=== PATIENT | female | born 1960 | race Caucasian/White ===

== ENCOUNTER → 2016-10-23 | Outpatient (CLI) | payer OTHER ==
--- NOTE | 2016-10-23 11:09 | US ---
Pelvic Ultrasound (Transabdominal and Endovaginal) with color flow and spectral Doppler History: 3 cm mass seen on prior outside CT study from August, not available for review but by outside history corresponded to the right ovary. History of vaginal spotting last few weeks. Previou s ablation procedure. IUD in place. (Q 50.39). Comparison: Prior CT study available from June 07, 2016 Findings: The pelvis was first examined through a mildly distended bladder from TRANSABDOMINAL approach. UTERUS: Partially obscured by overlying bowel loops. Orientation: Anteflexed. Uterine Masses: None seen. Endometrium: Not well delineated. ADNEXA: No adnexal masses. The ovaries are not positively identified from transabdominal approach. The pelvis was then evaluated from ENDOVAGINAL approach after the bladder was emptied to better evalu ate the uterus and adnexa. UTERUS: 10.2 x 5.1 x 7.8 cm in longitudinal, AP, and transverse dimensions. Orientation: Anteverted. Masses: There is a subserosal fibroid suspected along the right side of the uterine body to fundus me asuring 2.3 x 2.1 x 2.6 cm.. Endometrium: Normal measuring 7 to 8 mm in thickness. IUD appears to be low in position within the e ndometrial canal. On the prior CT available, the IUD was previously malpositioned being transverse or ientation within the endometrial canal that is not persistent on today's study. ADNEXA: Normal. There is a 17 x 9 mm follicular cyst associated with the right ovary. No mass is seen associated with either ovary. Right ovary size: 2.4 x 1.2 x 2.6 cm Left ovary size: 2.1 x 1.1 x 2.3 cm Color flow and spectral Doppler: Normal color flow imaging with normal Doppler waveform bilaterally. Free fluid: None. Other findings:None. Impression: 1. Small subserosal fibroid along the right-side of the uterine body to fundus. 2. Benign-appearing follicular cyst identified associated with right ovary. No adnexal mass is seen. 3. IUD in place within the endometrial canal that is slightly low in position but otherwise normal.
== END ==
LOC: CIMAGING 09:22
PROVIDERS: ATTEND Internal Medicine
DX: D25.2 Subserosal leiomyoma of uterus (principal); N83.01 Follicular cyst of right ovary; Z97.5 Presence of (intrauterine) contraceptive device
CPT/HCPCS: 76856-PO

== ENCOUNTER → 2017-01-26 | Outpatient (CLI) | payer OTHER | LOC: CIMAGING 14:58 | DX: Z12.31 Encounter for screening mammogram for malignant neoplasm of breast (principal) | CPT/HCPCS: G0202 ==

== ENCOUNTER 2017-02-02 09:36 | Emergency (ER) | payer OTHER ==
[2017-02-02 10:36] VITALS: BP 110/65; PULSE 57; RESP 16; TEMP 98.2; O2SAT 95
--- NOTE | 2017-02-02 10:42 | UCPHY ---
H & P Time Seen by Provider: 02/02/17 10:24 Patient Type: New HPI/ROS: CHIEF COMPLAINT: Left leg swelling HISTORY OF PRESENT ILLNESS: Patient had a DVT in 2012 and had a stroke in March of 2015 leaving her with some left-sided deficits. 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 Over the past week she has had some intermittent numbness and weakness in her usual pattern but also some swelling in the left leg. Concern is for recurrent DVT. She is on Xarelto. REVIEW OF SYSTEMS: No fever or chills or new injury or chest pain or shortness of breath. She does have ongoing aches including some chronic back pain but nothing new in that pattern. PAST MEDICAL HISTORY: Includes DVT on Xarelto 20 mg daily, stroke with left- sided weakness in 2014 Social history: General Appearance: Alert and conversant, cooperative. Left leg has some medial slight redness without warmth to the touch or lymphangitis which the patient says is also common for her. She has some muscle wasting in the left leg but compartments are soft. No peripheral edema noted. She has 4 to 4+ dorsiflexion and plantar flexion of the left foot compared to the right. No clonus and normal patellar reflexes bilaterally. No bony tenderness. Speaks in full sentences without respiratory distress. Emergency Department course/MDM: Patient's numbness and weakness are within normal pattern and I do not think she his at high likelihood of having acute disc rupture or epidural hematoma. Patient states that she also thinks that these are unlikely. Plan for ultrasound to evaluate for DVT. 1136: Discussed results with the patient. Per Dr. Pike she has new distal femoral and popliteal DVT. Missed a dose of Xarelto a week ago. 1143: Discussed with Love at this time, recommends lovenox 1mg/kg subcutaneously, discontinue Xarelto, if possible arrange for CT abdomen pelvis to evaluate for anatomic compression or May-Thurner syndrome. I discussed Dr. Aleman's recommendations with the patient. She sees Dr. Antoine. The patient tells me she had CT chest abdomen and pelvis with IV contrast through her [facility] neurologist in October or November of this year , and because of that we will defer CT imaging today and she will follow up with her usual composing room machinist Dr. Antoine in the office later this week. She does not have clinical signs or symptoms to suggest concurrent PE. Smoking Status: Never smoked Constitutional: Initial Vital Signs Temperature (C) 36.8 C 02/02/17 10:03 Heart Rate 57 L 02/02/17 10:03 Respiratory Rate 16 02/02/17 10:03 Blood Pressure 110/65 02/02/17 10:03 O2 Sat (%) 95 02/02/17 10:03 O2 Delivery Mode Room Air Allergies/Adverse Reactions: coconut oil Allergy (Verified 02/02/17 10:12) tropical fruits Allergy (Mild, Uncoded 02/02/17 10:12) Congestion liquid potassium Allergy (Uncoded 02/02/17 10:12) Home Medications: Medication Instructions Recorded Multivitamins W-Minerals [Thera M 1 each PO DAILY #0 tab 05/18/15 Plus Tablet (*)] Amantadine HCl [Symmetrel] 100 mg PO DAILY 06/07/16 Calcium Polycarbophil [Fiber-Caps] 625 mg PO DAILY 06/07/16 Herbals/Supplements -Info Only 1 ea PO DAILY 06/07/16 Metoprolol Tartrate [Lopressor 25 12.5 mg PO BID 06/07/16 mg (*)] [place]-3 Fatty Acids [Fish Oil 1000 1,000 mg PO DAILY 06/07/16 mg (*)] Sennosides/Docusate Sodium 1 tab PO BID 06/07/16 [Senokot-S] Sertraline HCl [Zoloft 100mg (*)] 150 mg PO DAILY 06/07/16 Tamsulosin HCl [Flomax 0.4 MG (*)] 0.4 mg PO DAILY 06/07/16 Omeprazole Magnesium [Prilosec Otc] 20 mg PO DAILY06 06/08/16 Diltiazem Cd [Cardizem ER 120 MG 120 mg PO DAILY@18 08/05/16 (*)] Rivaroxaban [Xarelto 15mg (*)] 15 mg PO DAILY 08/05/16 Zolpidem Tartrate [Ambien 5MG (*)] 5 - 10 mg PO HS 08/05/16 Atorvastatin Calcium [Lipitor 10 20 mg PO DAILY@18 #0 tab 08/06/16 mg (*)] Baclofen 04/17/17 Enoxaparin [Lovenox 80 MG (*)] 80 mg SQ BID #14 syr 02/02/17 LEVETIRACETAM 02/02/17 Xarelto 02/02/17 MDM/Departure - MDM Diagnostics: Imaging Impressions Extremity Venous Study 02/02/17 10:38 Impression: Acute on chronic deep venous thrombosis limited to the popliteal vein. Findings discussed with Emergency Department physician, Dr. Ernesto Perdomo, on February 02, 2017 at 1140 hours. Imaging Results: Imaging Impressions Extremity Venous Study 02/02/17 10:38 Impression: Acute on chronic deep venous thrombosis limited to the popliteal vein. Findings discussed with Emergency Department physician, Dr. Ernesto Perdomo, on February 02, 2017 at 1140 hours. Imaging: Discussed imaging studies w/ call out operator Radiologist Medications Given: Discontinued Medications Enoxaparin Sodium (Lovenox) 80 mg SC EDNOW ONE Stop: 02/02/17 11:54 Last Admin: 02/02/17 12:37 Dose: 80 mg - Depart Disposition: Home, Routine, Self-Care Clinical Impression: DVT (deep venous thrombosis) Qualifiers: DVT location: lower extremity Affected thrombotic vein of extremity: unspecified vein of extremity Laterality: left Chronicity: acute Qualified Code( s): I82.402 - Acute embolism and thrombosis of unspecified deep veins of left lower extremity Condition: Good Instructions: Deep Venous Thrombosis (ED) Additional Instructions: Stop Xarelto. Start Lovenox. Follow-up with your composing room machinist this week in the office. Return for chest pain or shortness of breath or worsening leg pain or swelling. Prescriptions: Enoxaparin [Lovenox 80 MG (*)] 80 mg SQ BID #14 syr Referrals: Anu Mcduffie MD [Primary Care Provider] - As per Instructions Kvng Antoine MD [Medical Doctor] - As per Instructions - PQRS PQRS Measurement: na
[2017-02-02] MEDS ORDERED: ENOXAPARIN 80 MG/0.8 ML SYR SC ONE (11:53)
== END 2017-02-02 12:45 | disposition home or self-care (01) ==
LOC: CED 09:36
DX: I82.402 Acute embolism and thrombosis of unspecified deep veins of left lower extremity (principal); I69.364 Other paralytic syndrome following cerebral infarction affecting left non-dominant side; Z79.01 Long term (current) use of anticoagulants
CPT/HCPCS: 93971-PO; 96372-PO; 99203-PO; G0463-PO; J1650

== ENCOUNTER 2017-03-22 16:58 | Emergency (ER) | payer OTHER ==
[2017-03-22 17:03] VITALS: RESP 16; O2SAT 95
--- NOTE | 2017-03-22 17:30 | EDPHY ---
H & P Time Seen by Provider: 03/22/17 17:11 HPI/ROS: CHIEF COMPLAINT: Hematuria, fatigue HISTORY OF PRESENT ILLNESS: 56-year-old female presents to the emergency department with intermittent hematuria over last 2 weeks. Patient was diagnosed with urinary tract infection 2 weeks ago was started on Bactrim. She took this twice daily for 1 week. Her symptoms returned. She saw Dr. Saba, her urologist, and was restarted on Bactrim just 2 or 3 days ago. She has been taking this as prescribed twice daily. She states over last few days she has felt extremely fatigued lack of energy. She has no pain in her chest. No difficulty breathing. No abdominal pain or back pain. No reported trauma. No fevers or chills. She has had intermittent headaches although she does not have a headache now. The patient has a history of a previous CVA and is on Eliquis. She was on Xarelto and this was changed because she developed DVT in her leg. REVIEW OF SYSTEMS: Constitutional: No fever, no chills. Eyes: No double or blurry vision. ENT: No sore throat. Respiratory: No cough, no shortness of breath. Cardiac: No chest pain. Gastrointestinal: No abdominal pain, vomiting or diarrhea. Genitourinary: Hematuria. Dysuria, urgency, frequency with urination has all resolved. Musculoskeletal: No neck or back pain. Skin: No rashes. Neurological: No headache. Past Medical/Surgical History: CVA with left-sided deficits, craniotomy, DVT right leg, chronic bladder issues using bladder stem Social History: , lives in [place] Smoking Status: Never smoked Physical Exam: General Appearance: Alert, no distress. Eyes: Pupils equal and round. Extraocular motions are all intact. ENT: Mouth: Mucous membranes moist. Respiratory: No wheezing, rhonchi, or rales, lungs are clear to auscultation. Cardiovascular: Regular rate and rhythm. Gastrointestinal: Abdomen is soft and nontender, no masses, no rebound or guarding, bowel sounds normal. No CVA tenderness bilaterally. Neurological: Alert and oriented x 3, cranial nerves II through XII grossly intact Skin: Warm and dry, no rashes. Musculoskeletal: Nontender to palpate along the cervical, thoracic or lumbar spine. Neck is supple. Rectal exam: Performed with nurseYeison, at bedside. Normal sphincter tone. Brown-colored stool. No jadon blood. Extremities: Limited range of motion of the left upper extremity. Full range of motion of the right upper extremity in the right lower extremity. She has limited range of motion of the left lower extremity secondary to a previous CVA. Psychiatric: Patient is oriented X 3, there is no agitation. Constitutional: Initial Vital Signs Temperature (C) 36.8 C 03/22/17 17:01 Heart Rate 56 L 03/22/17 17:01 Respiratory Rate 16 03/22/17 17:01 Blood Pressure 129/76 H 03/22/17 17:01 O2 Sat (%) 95 03/22/17 17:01 O2 Delivery Mode Room Air Allergies/Adverse Reactions: coconut oil Allergy (Verified 02/02/17 10:12) tropical fruits Allergy (Mild, Uncoded 02/02/17 10:12) Congestion liquid potassium Allergy (Uncoded 02/02/17 10:12) Home Medications: Medication Instructions Recorded Multivitamins W-Minerals [Thera M 1 each PO DAILY #0 tab 05/18/15 Plus Tablet (*)] Amantadine HCl [Symmetrel] 100 mg PO DAILY 06/07/16 Calcium Polycarbophil [Fiber-Caps] 625 mg PO DAILY 06/07/16 Herbals/Supplements -Info Only 1 ea PO DAILY 06/07/16 Metoprolol Tartrate [Lopressor 25 12.5 mg PO BID 06/07/16 mg (*)] [place]-3 Fatty Acids [Fish Oil 1000 1,000 mg PO DAILY 06/07/16 mg (*)] Sennosides/Docusate Sodium 1 tab PO BID 06/07/16 [Senokot-S] Sertraline HCl [Zoloft 100mg (*)] 150 mg PO DAILY 06/07/16 Tamsulosin HCl [Flomax 0.4 MG (*)] 0.4 mg PO DAILY 06/07/16 Omeprazole Magnesium [Prilosec Otc] 20 mg PO DAILY06 06/08/16 Diltiazem Cd [Cardizem ER 120 MG 120 mg PO DAILY@18 08/05/16 (*)] Rivaroxaban [Xarelto 15mg (*)] 15 mg PO DAILY 08/05/16 Zolpidem Tartrate [Ambien 5MG (*)] 5 - 10 mg PO HS 08/05/16 Atorvastatin Calcium [Lipitor 10 20 mg PO DAILY@18 #0 tab 08/06/16 mg (*)] Baclofen 02/02/17 Enoxaparin [Lovenox 80 MG (*)] 80 mg SQ BID #14 syr 02/02/17 LEVETIRACETAM 02/02/17 Xarelto 02/02/17 Medical Decision Making ED Course/Re-evaluation: 56-year-old female presents to the emergency department with blood in her urine and feeling fatigued. The patient's vital signs are stable. The patient looks well. An IV was established and laboratory studies were drawn. The patient has no signs of anemia. Hemoglobin and hematocrit are stable. Her PT and PTT are normal. The patient is on Eliquis. Her chemistries are unremarkable. She received IV normal saline. The case was discussed with Dr. Prasanna Zepeda, secondary supervising physician, who did not directly evaluate the patient but agrees with treatment and plan. The patient has a scheduled appointment with her urologist this week which I encouraged her to keep. Because she had guaiac-positive stool, she was referred to Gastroenterology on-call, Dr. Carmen Baker. I do not think imaging studies are indicated. The patient has no pain. She is comfortable being discharged home. Encouraged her return to the emergency department if she developed bright red blood per rectum, black tarry stools, if she felt weak or dizzy. She was comfortable being discharged home. Differential Diagnosis: Weakness including but not limited to GI bleed, electrolyte abnormality, depression, anxiety, CVA, spinal cord abnormality, and infectious causes. - Data Points Laboratory Results: Laboratory Results 03/22/17 17:30 03/22/17 17:30 03/22/17 03/22/17 03/22/17 18:20 17:30 17:30 WBC RBC Hgb Hct MCV MCH MCHC RDW Plt Count MPV Neut % (Auto) Lymph % (Auto) [place] % (Auto) Eos % (Auto) Baso % (Auto) Nucleat RBC Rel Count Absolute Neuts (auto) Absolute Lymphs (auto) Absolute Monos (auto) Absolute Eos (auto) Absolute Basos (auto) Absolute Nucleated RBC Immature Gran % Immature Gran # PT 14.6 SEC SEC (12.0-15.0) INR 1.15 (0.83-1.16) APTT 29.4 SEC SEC (23.0-38.0) Sodium 137 mEq/L mEq/L (134-144) Potassium 4.1 mEq/L mEq/L (3.5-5.2) Chloride 108 mEq/L mEq/L (97-110) Carbon Dioxide 21 mEq/l L mEq/l (22-31) Anion Gap 8 mEq/L mEq/L (8-16) BUN 11 mg/dL mg/dL (7-23) Creatinine 0.9 mg/dL mg/dL (0.6-1.0) Estimated GFR > 60 Glucose 91 mg/dL mg/dL (70-100) Calcium 9.1 mg/dL mg/dL (8.5-10.4) Urine Color YELLOW Urine Appearance HAZY Urine pH 5.0 (5.0-7.5) Ur Specific [place] 1.008 (1.002-1.030) Urine Protein NEGATIVE (NEGATIVE) Urine Ketones NEGATIVE (NEGATIVE) Urine Blood 3+ H (NEGATIVE) Urine Nitrate NEGATIVE (NEGATIVE) Urine Bilirubin NEGATIVE (NEGATIVE) Urine Urobilinogen NEGATIVE EU EU (0.2-1.0) Ur Leukocyte Esterase NEGATIVE (NEGATIVE) Urine RBC 3-5 /hpf H /hpf (0-3) Urine WBC 1-3 /hpf /hpf (0-3) Ur Epithelial Cells TRACE /lpf /lpf (NONE-1+) Urine Bacteria TRACE /hpf H /hpf (NONE SEEN) Urine Mucus TRACE /lpf /lpf (NONE-1+) Ur Culture Indicated? NOT INDICATED (NI) Urine Glucose NEGATIVE (NEGATIVE) Stool Occult Bld Scrn 03/22/17 03/22/17 17:30 17:25 WBC 5.72 10^3/uL 10^3/uL (3.80-9.50) RBC 4.47 10^6/uL 10^6/uL (4.18-5.33) Hgb 14.2 g/dL g/dL (12.6-16.3) Hct 43.4 % % (38.0-47.0) MCV 97.1 fL fL (81.5-99.8) MCH 31.8 pg pg (27.9-34.1) MCHC 32.7 g/dL g/dL (32.4-36.7) RDW 13.2 % % (11.5-15.2) Plt Count 251 10^3/uL 10^3/uL (150-400) MPV 10.5 fL fL (8.7-11.7) Neut % (Auto) 69.4 % % (39.3-74.2) Lymph % (Auto) 21.9 % % (15.0-45.0) [place] % (Auto) 6.5 % % (4.5-13.0) Eos % (Auto) 1.7 % % (0.6-7.6) Baso % (Auto) 0.3 % % (0.3-1.7) Nucleat RBC Rel Count 0.0 % % (0.0-0.2) Absolute Neuts (auto) 3.97 10^3/uL 10^3/uL (1.70-6.50) Absolute Lymphs (auto) 1.25 10^3/uL 10^3/uL (1.00-3.00) Absolute Monos (auto) 0.37 10^3/uL 10^3/uL (0.30-0.80) Absolute Eos (auto) 0.10 10^3/uL 10^3/uL (0.03-0.40) Absolute Basos (auto) 0.02 10^3/uL 10^3/uL (0.02-0.10) Absolute Nucleated RBC 0.00 10^3/uL 10^3/uL (0-0.01) Immature Gran % 0.2 % % (0.0-1.1) Immature Gran # 0.01 10^3/uL 10^3/uL (0.00-0.10) PT INR APTT Sodium Potassium Chloride Carbon Dioxide Anion Gap BUN Creatinine Estimated GFR Glucose Calcium Urine Color Urine Appearance Urine pH Ur Specific [place] Urine Protein Urine Ketones Urine Blood Urine Nitrate Urine Bilirubin Urine Urobilinogen Ur Leukocyte Esterase Urine RBC Urine WBC Ur Epithelial Cells Urine Bacteria Urine Mucus Ur Culture Indicated? Urine Glucose Stool Occult Bld Scrn POSITIVE H (NEGATIVE) Medications Given: Discontinued Medications Sodium Chloride (Ns) 1,000 mls @ 0 mls/hr IV EDNOW ONE PRN Reason: Wide Open Stop: 03/22/17 17:45 Last Admin: 03/22/17 17:45 Dose: 1,000 mls Departure - Departure Disposition: Home, Routine, Self-Care Clinical Impression: Hematuria Fatigue Qualifiers: Fatigue type: unspecified Qualified Code(s): R53.83 - Other fatigue Condition: Good Instructions: Hematuria (ED), Fatigue (ED) Additional Instructions: Continue Bactrim as prescribed. Follow up with Dr. Saba as scheduled this week. Follow up with Gastroenterology regarding the microscopic blood that was found in her stool. Return to the emergency department if you developed worsening fatigue, vomiting , chest pain, difficulty breathing, or if you feel worse in any way. Referrals: Anu Mcduffie MD [Primary Care Provider] - As per Instructions Carmen Baker MD [Medical Doctor] - 2-3 days, call for appt. ( Ends Breakage Clerk on-call)
[2017-03-22 17:40] LABS: % IMMATURE GRANULYOCYTES 0.2 % (0.0-1.1); ABSOLUTE IMMATURE GRANULOCYTES 0.01 10^3/uL (0.00-0.10); ADD DIFF? NO; ADD MORPH? NO; ADD SCAN? NO; ATYPICAL LYMPHOCYTE FLAG 30 (0-99); FRAGMENT RBC FLAG 0 (0-99); HEMATOCRIT 43.4 % (38.0-47.0); HEMOGLOBIN 14.2 g/dL (12.6-16.3); LEFT SHIFT FLG 0 (0-99); LIPEMIA HEMOLYSIS FLAG 80 (0-99); MEAN CELL HEMOGLOBIN 31.8 pg (27.9-34.1); MEAN CELL HEMOGLOBIN CONCENTR. 32.7 g/dL (32.4-36.7); MEAN CELL VOLUME 97.1 fL (81.5-99.8); MEAN PLATELET VOLUME 10.5 fL (8.7-11.7); PLATELET CLUMPS FLAG 0 (0-99); PLATELET COUNT 251 10^3/uL (150-400); RED BLOOD CELL COUNT 4.47 10^6/uL (4.18-5.33); RED CELL DISTRIBUTION WIDTH 13.2 % (11.5-15.2)
[2017-03-22] MEDS ORDERED: NS 1,000 ML IV ONE (17:44)
[2017-03-22 18:00] LABS: INR 1.15 (0.83-1.16); PROTIME(PATIENT) 14.6 SEC (12.0-15.0)
[2017-03-22 18:01] LABS: APTT 29.4 SEC (23.0-38.0)
[2017-03-22 18:31] LABS: COLOR YELLOW; LEUKOCYTE ESTERASE,URINE NEGATIVE (NEGATIVE); NITRITE,URINE NEGATIVE (NEGATIVE)
[2017-03-22 18:35] LABS: BACTERIA TRACE /hpf (NONE SEEN); MUCUS TRACE /lpf (NONE-1+)
[2017-03-22 18:35] LABS: ANION GAP 8 mEq/L (8-16); CALCIUM 9.1 mg/dL (8.5-10.4); CARBON DIOXIDE 21 mEq/l (22-31); CHLORIDE 108 mEq/L (97-110); CREATININE 0.9 mg/dL (0.6-1.0); GLOMERULAR FILTRATION RATE > 60; GLUCOSE 91 mg/dL (70-100); POTASSIUM 4.1 mEq/L (3.5-5.2); SODIUM 137 mEq/L (134-144)
[2017-03-22 19:07] VITALS: BP 150/82; PULSE 52; TEMP 97.5
== END 2017-03-22 19:07 | disposition home or self-care (01) ==
DX: R53.83 Other fatigue (principal); R31.9 Hematuria, unspecified; Z79.01 Long term (current) use of anticoagulants; Z86.73 Personal history of transient ischemic attack (TIA), and cerebral infarction without residual deficits

== ENCOUNTER → 2017-06-08 | Outpatient (CLI) | payer OTHER | LOC: FIMAGING 13:48 | PROVIDERS: ATTEND Internal Medicine | DX: M25.552 Pain in left hip (principal); M53.3 Sacrococcygeal disorders, not elsewhere classified; M79.632 Pain in left forearm ==

== ENCOUNTER → 2017-08-19 | Outpatient (CLI) | payer OTHER | LOC: CIMAGING 10:29 | PROVIDERS: ATTEND Physician Assistant | DX: K59.00 Constipation, unspecified (principal) | CPT/HCPCS: 74020-PO ==

== ENCOUNTER 2017-08-25 06:42 | Day surgery (SDC) | payer OTHER ==
[2017-08-25] MEDS ORDERED: LR 1,000 ML IV ONE (07:45)
--- NOTE | 2017-08-25 07:54 | PDGENHP ---
History & Physical Chief Complaint: EGD and colonoscopy for iron def anemia Relevant Physical Exam: GEN: NAD. Cardiac: RRR. Lungs: CTA B. Abd: Soft, nt, nd
--- NOTE | 2017-08-25 07:54 | PDGENHP ---
History & Physical Chief Complaint: EGD and colonoscopy for iron def anemia Relevant Physical Exam: GEN: NAD. Cardiac: RRR. Lungs: CTA B. Abd: Soft, nt, nd
--- NOTE | 2017-08-25 07:54 | PDGENHP ---
History & Physical Chief Complaint: EGD and colonoscopy for iron def anemia Relevant Physical Exam: GEN: NAD. Cardiac: RRR. Lungs: CTA B. Abd: Soft, nt, nd
--- NOTE | 2017-08-25 08:05 | PDANEPAE ---
ANE History of Present Illness screening ANE Past Medical History - Cardiovascular History Hx Hypertension: Yes Hx Arrhythmias: Yes Hx Chest Pain: No Hx Coronary Artery / Peripheral Vascular Disease: No Hx CHF / Valvular Disease: No Hx Palpitations: No Cardiovascular History Comment: hx of afib immediately following stroke. dyslipidemia. hx of dvt - Pulmonary History Hx COPD: No Hx Asthma/Reactive Airway Disease: No Hx Recent Upper Respiratory Infection: No Hx Oxygen in Use at Home: No Hx Sleep Apnea: No Sleep Apnea Screening Result - Last Documented: Negative Pulmonary History Comment: hx of PE - Neurologic History Hx Cerebrovascular Accident: Yes Hx Seizures: Yes Neurologic History Comment: right CVA 2014. Left arm hemiparesis. Left leg weakness. seizure x1 10/2016 - Endocrine History Hx Diabetes: No - Renal History Hx Renal Disorders: Yes Renal History Comment: overactive bladder. incontinent. currently doing electrical stimulation treatments to help with incontinence - Liver History Hx Hepatic Disorders: No - Neurological & Psychiatric Hx Hx Neurological and Psychiatric Disorders: No - Cancer History Hx Cancer: No - Congenital Disorder History Hx Congenital Disorders: No - GI History Hx Gastrointestinal Disorders: Yes Gastrointestinal History Comment: chronic constipation. gerd. dysphagia - Other Health History Other Health History: wears glasses. iron deficiency anemia - Chronic Pain History Chronic Pain: Yes (right hand carpal tunnel) - Surgical History Prior Surgeries: Craniotomy with Alfonzo 05/21/15. ANE Review of Systems Review of Systems: - Exercise capacity METS (RN): 4 METS ANE Patient History - Allergies Allergies/Adverse Reactions: No Known Allergies Allergy (Verified 08/24/17 12:53) - Home Medications Home Medications: Amantadine HCl [Symmetrel] 06/07/16 [Last Taken 08/25/17 06:00] Herbals/Supplements -Info Only 06/07/16 [Last Taken Unknown] Metoprolol Tartrate [Lopressor 25 mg (*)] 06/07/16 [Last Taken 08/25/17 06:00] Sennosides/Docusate Sodium [Senokot-S] 06/07/16 [Last Taken 08/05/16] Sertraline HCl [Zoloft 100mg (*)] 06/07/16 [Last Taken 08/24/17 23:00] Tamsulosin HCl [Flomax 0.4 MG (*)] 06/07/16 [Last Taken 08/25/17 06:00] Omeprazole Magnesium [Prilosec Otc] 06/08/16 [Last Taken 08/25/17 08:00] Diltiazem Cd [Cardizem ER 120 MG (*)] 08/05/16 [Last Taken 08/25/17 06:00] Zolpidem Tartrate [Ambien 5MG (*)] 08/05/16 [Last Taken 08/24/17 23:00] Baclofen 02/02/17 [Last Taken 08/24/17 23:00] LEVETIRACETAM 02/02/17 [Last Taken 08/23/17] Allergy Medicine 08/24/17 [Last Taken 08/25/17 06:00] Aspirin 81mg (*) 08/24/17 [Last Taken 08/23/17] Atorvastatin Calcium [Lipitor 10 mg (*)] 08/24/17 [Last Taken 08/24/17 23:00] Eliquis 08/24/17 [Last Taken 08/22/17] Excedrin Tablet (*) 08/24/17 [Last Taken 08/23/17] Vesicare 5 MG (*) 08/24/17 [Last Taken 08/25/17 06:15] - NPO status NPO Since - Liquids (Date): 08/24/17 NPO Since - Liquids (Time): 08:00 NPO Since - Solids (Date): 08/24/17 NPO Since - Solids (Time): 08:00 - Smoking Hx Smoking Status: Never smoked - Family Anes Hx Family Hx Anesthesia Complications: none ANE Labs/Vital Signs - Vital Signs Blood Pressure: 118/66 Heart Rate: 50 Respiratory Rate: 17 O2 Sat (%): 97 Height: 167.64 cm Weight: 81.647 kg ANE Physical Exam - Airway Neck exam: FROM Mallampati Score: Class 2 Mouth exam: normal dental/mouth exam - Pulmonary Pulmonary: no respiratory distress - Cardiovascular Cardiovascular: regular rate and rhythym - ASA Status ASA Status: III ANE Anesthesia Plan Total IV Anesthesia: Yes
[2017-08-25] MEDS ORDERED: PROPOFOL 200 MG/20 ML VIAL ONE ×3 (08:08→08:47)
--- NOTE | 2017-08-25 09:11 | GIREPORT ---
[facility] - Endoscopy Department Patient Name: Sulema Smallwood Procedure Date: 08/25/2017 7:59 AM Patient Type: Outpatient Attending MD/ ER Physician: Jackson Coffman MD Procedure: Upper GI endoscopy Indications: Iron deficiency anemia, Heartburn Providers: Jackson Coffman MD Medicines: Monitored Anesthesia Care Complications: No immediate complications. Description of Procedure: After obtaining informed consent, the endoscope was passed under direct vision. Throughout the procedure, the patient's blood pressure, pulse, and oxygen saturations were monitored continuously. The Endoscope was intro duced through the mouth, and advanced to the second part of duodenum. The [facility] er GI endoscopy was accomplished without difficulty. The patient tolerated th e procedure well. Findings: The Z-line was irregular and was found 39 cm from the incisors. Biopsie s were taken with a cold forceps for histology. Verification of patient identification for the specimen was done by the physician and nurse sharita ng the patient's name and date. Estimated blood loss was minimal. The entire examined stomach was normal. Biopsies were taken with a cold forceps for histology. Verification of patient identification for the specimen was done by the physician and nurse using the patient's name a nd date. Estimated blood loss was minimal. The examined duodenum was normal. Biopsies were taken with a cold force ps for histology. Verification of patient identification for the specimen was done by the physician and nurse using the patient's name and date . Estimated blood loss was minimal. Estimated Blood Loss: Estimated blood loss: none. Post Op Diagnosis: - Z-line irregular, 39 cm from the incisors. Biopsied. - Normal stomach. Biopsied. - Normal examined duodenum. Biopsied. Recommendation: - Discharge patient to home (with escort). - Resume previous diet. - Continue present medications. - Await pathology results. Results are available within 10 days. - Thank you for allowing me to participate in the care of your patient. Attending Participation: I personally performed the entire procedure. Jackson Coffman MD Jackson Coffman MD 08/25/2017 9:10:41 AM This report has been signed electronicallyJcakson Coffman MD Number of Addenda: 0 Note Initiated On: 08/25/2017 7:59 AM [email or web address]
--- NOTE | 2017-08-25 09:11 | GIREPORT ---
[facility] Surgical Services - Endoscopy Department Patient Name: Sulema Smallwood Procedure Date: 08/25/2017 7:59 AM Patient Type: Outpatient Attending MD/ ER Physician: Jackson Coffman MD Procedure: Upper GI endoscopy Indications: Iron deficiency anemia, Heartburn Providers: Jackson Coffman MD Medicines: Monitored Anesthesia Care Complications: No immediate complications. Description of Procedure: After obtaining informed consent, the endoscope was passed under direct vision. Throughout the procedure, the patient's blood pressure, pulse, and oxygen saturations were monitored continuously. The Endoscope was intro duced through the mouth, and advanced to the second part of duodenum. The [facility] GI endoscopy was accomplished without difficulty. The patient tolerated th e procedure well. Findings: The Z-line was irregular and was found 39 cm from the incisors. Biopsie s were taken with a cold forceps for histology. Verification of patient identification for the specimen was done by the physician and nurse sharita ng the patient's name and date. Estimated blood loss was minimal. The entire examined stomach was normal. Biopsies were taken with a cold forceps for histology. Verification of patient identification for the specimen was done by the physician and nurse using the patient's name a nd date. Estimated blood loss was minimal. The examined duodenum was normal. Biopsies were taken with a cold force ps for histology. Verification of patient identification for the specimen was done by the physician and nurse using the patient's name and date . Estimated blood loss was minimal. Estimated Blood Loss: Estimated blood loss: none. Post Op Diagnosis: - Z-line irregular, 39 cm from the incisors. Biopsied. - Normal stomach. Biopsied. - Normal examined duodenum. Biopsied. Recommendation: - Discharge patient to home (with escort). - Resume previous diet. - Continue present medications. - Await pathology results. Results are available within 10 days. - Thank you for allowing me to participate in the care of your patient. Attending Participation: I personally performed the entire procedure. Jackson Coffman MD Jackson Coffman MD 08/25/2017 9:10:41 AM This report has been signed electronicallyJackson Coffman MD Number of Addenda: 0 Note Initiated On: 08/25/2017 7:59 AM [email or web address]
--- NOTE | 2017-08-25 09:11 | GIREPORT ---
[facility] Surgical Services - Endoscopy Department Patient Name: Sulema Smallwood Procedure Date: 08/25/2017 7:59 AM Patient Type: Outpatient Attending MD/ ER Physician: Jackson Coffman MD Procedure: Upper GI endoscopy Indications: Iron deficiency anemia, Heartburn Providers: Jackson Coffman MD Medicines: Monitored Anesthesia Care Complications: No immediate complications. Description of Procedure: After obtaining informed consent, the endoscope was passed under direct vision. Throughout the procedure, the patient's blood pressure, pulse, and oxygen saturations were monitored continuously. The Endoscope was intro duced through the mouth, and advanced to the second part of duodenum. The [facility] er GI endoscopy was accomplished without difficulty. The patient tolerated th e procedure well. Findings: The Z-line was irregular and was found 39 cm from the incisors. Biopsie s were taken with a cold forceps for histology. Verification of patient identification for the specimen was done by the physician and nurse sharita ng the patient's name and date. Estimated blood loss was minimal. The entire examined stomach was normal. Biopsies were taken with a cold forceps for histology. Verification of patient identification for the specimen was done by the physician and nurse using the patient's name a nd date. Estimated blood loss was minimal. The examined duodenum was normal. Biopsies were taken with a cold force ps for histology. Verification of patient identification for the specimen was done by the physician and nurse using the patient's name and date . Estimated blood loss was minimal. Estimated Blood Loss: Estimated blood loss: none. Post Op Diagnosis: - Z-line irregular, 39 cm from the incisors. Biopsied. - Normal stomach. Biopsied. - Normal examined duodenum. Biopsied. Recommendation: - Discharge patient to home (with escort). - Resume previous diet. - Continue present medications. - Await pathology results. Results are available within 10 days. - Thank you for allowing me to participate in the care of your patient. Attending Participation: I personally performed the entire procedure. Jackson Coffman MD Jackson Coffman MD 08/25/2017 9:10:41 AM This report has been signed electronicallyJackson Coffman MD Number of Addenda: 0 Note Initiated On: 08/25/2017 7:59 AM [email or web address]
--- NOTE | 2017-08-25 09:13 | GIREPORT ---
[facility] Surgical Services - Endoscopy Department Patient Name: Sulema Smallwood Procedure Date: 08/25/2017 8:35 AM Patient Type: Outpatient Attending / ER Physician: Jackson Coffman MD Procedure: Colonoscopy Indications: Iron deficiency anemia Providers: Jackson Coffman MD Medicines: Monitored Anesthesia Care Complications: No immediate complications. Description of Procedure: After obtaining informed consent, the scope was passed under direct vis ion. Throughout the procedure, the patient's blood pressure, pulse, and oxyg en saturations were monitored continuously. The Colonoscope with irrigatio n channel was introduced through the anus and advanced to the terminal il eum, with identification of the appendiceal orifice and IC valve. The colono scopy was performed without difficulty. The patient tolerated the procedure w ell. The quality of the bowel preparation was good. Findings: The perianal and digital rectal examinations were normal. The terminal ileum appeared normal. The colon (entire examined portion) appeared normal. The retroflexed view of the distal rectum and anal verge was normal and showed no anal or rectal abnormalities. Estimated Blood Loss: Estimated blood loss: none. Post Op Diagnosis: - The examined portion of the ileum was normal. - The entire examined colon is normal. - The distal rectum and anal verge are normal on retroflexion view. - No specimens collected. Recommendation: - Discharge patient to home (with escort). - Resume previous diet. - Continue present medications. - Repeat colonoscopy in 10 years for screening purposes. - Thank you for allowing me to participate in the care of your patient. Attending Participation: I personally performed the entire procedure. Jackson Coffman MD Jackson Coffman MD 08/25/2017 9:13:10 AM This report has been signed electronicallyDajolly Coffman MD Number of Addenda: 0 Note Initiated On: 08/25/2017 8:35 AM Total Procedure Duration Time 0 hours 31 minutes 43 seconds [email or web address]
--- NOTE | 2017-08-25 09:16 | POSTANESTH ---
Post Anesthetic Evaluation Cardiovascular Status: Normal, Stable Respiratory Status: Normal, Stable Level of Consciousness/Mental Status: Can Participate in Eval Pain Control: Adequate, Prn Tx Ordered Nausea/Vomiting Control: Adequate, Prn Tx Ordered Complications Possibly Related to Anesthesia: None Noted
[2017-08-25] MEDS ORDERED: NALOXONE HCL 0.4 MG/ML INJ IVP PRN (09:19)
[2017-08-25 09:59] VITALS: TEMP 97.9
[2017-08-25 10:47] VITALS: BP 132/76; PULSE 46; RESP 14; O2SAT 96
== END 2017-08-25 10:47 | disposition home or self-care (01) ==
LOC: FSGY 06:42
PROVIDERS: ATTEND Internal Medicine Gastroenterology
PROC: 0DJD8ZZ Inspection of Lower Intestinal Tract, Via Natural or Artificial Opening Endoscopic (ICD-10-PCS; principal; 2017-08-25 08:15)
PROC: 0DB48ZX Excision of Esophagogastric Junction, Via Natural or Artificial Opening Endoscopic, Diagnostic (ICD-10-PCS; principal; 2017-08-25 08:15)
PROC: 0DB68ZX Excision of Stomach, Via Natural or Artificial Opening Endoscopic, Diagnostic (ICD-10-PCS; principal; 2017-08-25 08:15)
PROC: 0DB98ZX Excision of Duodenum, Via Natural or Artificial Opening Endoscopic, Diagnostic (ICD-10-PCS; principal; 2017-08-25 08:15)
DX: D50.9 Iron deficiency anemia, unspecified (principal); K59.00 Constipation, unspecified; R12 Heartburn; K22.8 Other specified diseases of esophagus; R13.10 Dysphagia, unspecified; K62.5 Hemorrhage of anus and rectum; I48.91 Unspecified atrial fibrillation; E78.5 Hyperlipidemia, unspecified; K21.9 Gastro-esophageal reflux disease without esophagitis; I10 Essential (primary) hypertension; I69.852 Hemiplegia and hemiparesis following other cerebrovascular disease affecting left dominant side; N32.81 Overactive bladder; Z86.718 Personal history of other venous thrombosis and embolism; Z86.711 Personal history of pulmonary embolism; Z79.01 Long term (current) use of anticoagulants
CPT/HCPCS: J2704

== ENCOUNTER 2017-10-22 15:28 | Emergency (ER) | payer OTHER ==
--- NOTE | 2017-10-22 16:52 | EDPHY ---
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 The patient had recent long travel. She states this feels similar to her previous DVT. However, she has less pain than her previous episodes. She describes minimal discomfort. It does not radiate. She has had mild numbness that she describes as a tingling sensation. She has had no significant swelling. No fevers or chills. The patient has had upper respiratory infection for the past week. She states that she was diagnosed with bronchitis. She is currently taking a Z-Elfego. She feels as though her cough is improving. REVIEW OF SYSTEMS: My complete review of systems is negative except as mentioned in the HPI. 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 The patient has residual left upper extremity weakness and left facial droop. Smoking Status: Never smoked Physical Exam: 36.7, 124/77, 53, 17, 95 GENERAL: Well-appearing, in no acute distress, alert. HEENT: Eyes normal to inspection, normal pharynx, no signs of dehydration. NECK: No thyromegaly, no lymphadenopathy, supple. RESPIRATORY: Clear to auscultation bilaterally, no rales, rhonchi or wheezing. CVS: Regular rate and rhythm, no rubs, murmurs, or gallops. ABDOMEN: Soft, nontender, nondistended, no organomegaly. BACK: Normal to inspection, no CVA tenderness. SKIN: Normal color, no rash, warm, dry. No pallor. EXTREMITIES: Lower extremities with no pedal edema, no calf tenderness, no Homans sign or cords, no joint swelling. Normal. Patient has a contracted left upper extremity. She has no movement of this extremity. NEURO/PSYCH: Alert and oriented x3, normal mood and affect, normal motor sensory exam. Mild left facial droop. She states this is baseline. Constitutional: Initial Vital Signs Temperature (C) 36.7 C 10/22/17 15:39 Heart Rate 53 L 10/22/17 15:39 Respiratory Rate 17 10/22/17 15:39 Blood Pressure 124/77 H 10/22/17 15:39 O2 Sat (%) 95 10/22/17 15:39 O2 Delivery Mode Room Air Allergies/Adverse Reactions: No Known Allergies Allergy (Verified 10/22/17 15:38) Home Medications: Medication Instructions Recorded Amantadine HCl [Symmetrel] 06/07/16 Herbals/Supplements -Info Only 06/07/16 Metoprolol Tartrate [Lopressor 25 06/07/16 mg (*)] Sennosides/Docusate Sodium 06/07/16 [Senokot-S] Sertraline HCl [Zoloft 100mg (*)] 06/07/16 Tamsulosin HCl [Flomax 0.4 MG (*)] 06/07/16 Omeprazole Magnesium [Prilosec Otc] 06/08/16 Diltiazem Cd [Cardizem ER 120 MG 08/05/16 (*)] Zolpidem Tartrate [Ambien 5MG (*)] 08/05/16 Baclofen 02/02/17 LEVETIRACETAM 02/02/17 Allergy Medicine 08/24/17 Aspirin 81mg (*) 08/24/17 Atorvastatin Calcium [Lipitor 10 08/24/17 mg (*)] Eliquis 08/24/17 Excedrin Tablet (*) 08/24/17 Vesicare 5 MG (*) 08/24/17 Enoxaparin [Lovenox 80 MG (*)] 80 mg SQ BID #12 syr 10/22/17 Medical Decision Making - Diagnostics Imaging Results: Imaging Impressions Extremity Venous Study 10/22/17 16:52 Impression: Positive deep venous thrombosis left leg involving the left femoral vein, popliteal vein, and calf veins. Findings and recommendations discussed with Emergency Department physician, Kristen Pulido M.D., at 1745 hours, on October 22, 2017. Final report concurs with initial preliminary interpretation. ED Course/Re-evaluation: In the emergency department I discussed possible etiologies with the patient and her son. I answered all her questions. Patient does not want x-ray imaging of his chest for her bronchitis type symptoms. She did not want laboratory studies performed. She did agree to ultrasound of her left lower extremity. I discussed the pros and cons of this workup. Ultrasound: Please refer the did report by Dr. Narendra Agrawal. The patient has positive DVT. I discussed the case with Dr. Levine from the hospitalist service. He felt the patient could be managed as an outpatient with Lovenox. I subsequently paged patient's primary care physician Dr. Anu Mcduffie. 1903: I discussed the case with GUILLE Hurt. She will ensure the patient has close follow-up. She agrees with the plan. I discussed the results with the patient. I answered all her questions. She was given Lovenox 80 mg subcu. Patient was given a prescription of Lovenox. She will follow up with both primary care physician and her oncologist. She was given warnings prior to leaving. She will return with worsening symptoms. Differential Diagnosis: My differential includes but not limited to DVT, arterial occlusion, leg cramps , bronchitis, pneumonia - Data Points Medications Given: Discontinued Medications Enoxaparin Sodium (Lovenox) 80 mg SC EDNOW ONE Stop: 10/22/17 18:00 Last Admin: 10/22/17 18:42 Dose: 80 mg Departure - Departure Disposition: Home, Routine, Self-Care Clinical Impression: DVT (deep venous thrombosis) Qualifiers: DVT location: lower extremity Affected thrombotic vein of extremity: femoral Chronicity: acute Laterality: left Qualified Code(s): I82.412 - Acute embolism and thrombosis of left femoral vein Condition: Good Instructions: Deep Vein Thrombosis (ED) Additional Instructions: Return with increasing pain, swelling, chest pain, shortness of breath or any other concerns. You been given a prescription of Lovenox. Take this as directed. You need close follow-up with your aerophysicist. You should be seen by your aerophysicist in the next few days. Referrals: Anu Mcduffie MD [Primary Care Provider] - 1-2 days without fail Prescriptions: Enoxaparin [Lovenox 80 MG (*)] 80 mg SQ BID #12 syr
[2017-10-22] MEDS ORDERED: ENOXAPARIN 80 MG/0.8 ML SYR SC ONE (17:59)
[2017-10-22 18:19] VITALS: BP 138/80; PULSE 52; RESP 18; TEMP 98.2; O2SAT 93
== END 2017-10-22 19:25 | disposition home or self-care (01) ==
DX: I82.412 Acute embolism and thrombosis of left femoral vein (principal); Z86.73 Personal history of transient ischemic attack (TIA), and cerebral infarction without residual deficits
CPT/HCPCS: 93971; 96372; 99284; J1650

== ENCOUNTER 2017-12-01 15:33 | Emergency (ER) | payer OTHER ==
[2017-12-01 15:55] VITALS: RESP 16; O2SAT 94
--- NOTE | 2017-12-01 15:58 | EDPHY ---
H & P Stated Complaint: L leg pain, hx DVT Time Seen by Provider: 12/01/17 15:57 HPI/ROS: HPI: This is a 57-year-old female who presents with Chief Complaint: L leg pain, hx DVT Location: Left leg Quality: Pain Duration: Few days Signs and Symptoms: no shortness of breath at rest, no shortness of breath on exertion, no cough, no chest pain, no palpitations, no lower extremity edema, no wheezing, no orthopnea, no paroxysmal nocturnal dyspnea, no fever, no injury/ trauma, no hemoptysis Timing: Acute on chronic Severity: [id number]-[id number] Context: History of DVT right leg October 2013 and DVT 2018 on Eliquis and reports compliance presents with entire left leg pain times a few days. Denies any recent fall/injuries. Denies redness/calf tenderness/chest pain/shortness of breath. After further questioning patient reports that she accidentally fell in September and landed on her lower back. She does believe that the pain starts in her lower back and radiates down her left leg accompanied by some left hip discomfort. Patient has never had images of the her lower back or hips performed. 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 CONSTITUTIONAL: Pleasant, well-appearing adult white female, awake and alert, no obvious distress HEENT: Atraumatic and normocephalic. NECK: supple, no midline tenderness, flexion 45 degrees, extension 45 degrees, right and left lateral flexion 45 degrees. No meningismus. Cardiovascular: Normal S1/S2, regular rate, regular rhythm, without murmur rub or gallop. PULMONARY/CHEST: Symmetrical and nontender. no crepitus. Clear to auscultation bilaterally. Good air movement. No accessory muscle usage. ABDOMEN: Soft, nondistended, nontender, no ecchymosis. PELVIC: no pain with rocking; bilateral hips flexion 125 degrees, extension 30 degrees, with no pain internal rotation and no pain external rotation. BACK: No midline tenderness, no paraspinous spasm, deep tendon reflexes 2/2, mild pain with straight leg raise on left, no pain with straight leg raise on right. No pain with flexion and extension or lateral rotation. EXTREMITIES: 2/2 pulses, strength 5/5, DIP/PIP/MCP flexion/extension intact with good light touch sensation. no deformities, no clubbing, no cyanosis or edema. Mild calf tenderness on the right noted. NEUROLOGICAL: no focal neuro deficits. GCS 15. Light touch sensation intact. SKIN: Warm and dry, no erythema. no rash. Good capillary refill. 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, DVT 2017 - Social History Smoking Status: Never smoked Constitutional: Initial Vital Signs Temperature (C) 36.9 C 12/01/17 15:52 Heart Rate 60 12/01/17 15:52 Respiratory Rate 16 12/01/17 15:52 Blood Pressure 113/76 12/01/17 15:52 O2 Sat (%) 94 12/01/17 15:52 O2 Delivery Mode Room Air Allergies/Adverse Reactions: No Known Allergies Allergy (Verified 12/01/17 15:49) Home Medications: Medication Instructions Recorded Amantadine HCl [Symmetrel] 06/07/16 Herbals/Supplements -Info Only 06/07/16 Metoprolol Tartrate [Lopressor 25 06/07/16 mg (*)] Sertraline HCl [Zoloft 100mg (*)] 06/07/16 Tamsulosin HCl [Flomax 0.4 MG (*)] 06/07/16 Omeprazole Magnesium [Prilosec Otc] 06/08/16 Diltiazem Cd [Cardizem ER 120 MG 08/05/16 (*)] Zolpidem Tartrate [Ambien 5MG (*)] 08/05/16 Baclofen 02/02/17 LEVETIRACETAM 02/02/17 Allergy Medicine 08/24/17 Aspirin 81mg (*) 08/24/17 Atorvastatin Calcium [Lipitor 10 08/24/17 mg (*)] Eliquis 08/24/17 Excedrin Tablet (*) 08/24/17 Vesicare 5 MG (*) 08/24/17 Melatonin 12/01/17 Deposit-3 12/01/17 Polyethylene Glycol 3350 [Miralax 17 gm PO DAILY PRN #12 pkt 12/01/17 17 gm (*)] methylPREDNISolone [Medrol Dose 1 each PO AD #0 ea 12/01/17 Elfego] oxyCODONE/APAP 5/325 [Percocet 1 - 2 tab PO Q4H PRN #10 tab 12/01/17 5/325 (*)] Medical Decision Making - Diagnostics Imaging Results: Imaging Impressions Extremity Venous Study 12/01/17 15:58 Impression: 1. Relatively stable appearance of partially occlusive recanalizing chronic thrombus left femoral vein through the popliteal vein and into one of the 2 peroneal veins. Findings discussed with Krys House PAC at 17:26 hour, 12/01/2017. Hip X-Ray 12/01/17 16:07 Impression: 1. Negative. No acute fracture. 2. Constipation. Lumbar Spine X-Ray 12/01/17 16:07 Impression: Mild early multilevel facet arthropathy lower lumbar spine. No evidence for a fracture. ED Course/Re-evaluation: Left lower extremity ultrasound ordered per patient's insistence. 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 Lumbosacral x-ray and left hip x-ray ordered, given Gabapentin and Percocet with adequate relief of pain No signs of neurovascular compromise/tenting of skin/compartment syndrome/ extremities and joints examined above and below area of concern and are neurovascularly intact. Hip x-ray my my read shows no acute process Lumbosacral x-ray my read shows constipation; mild degenerative changes Not a NSAID candidate as on chronic anticoagulation. Called by radiologist who advised that ultrasound shows stable chronic DVT This patient was seen under the supervision of my secondary supervising physician. I evaluated care for this patient independently. Discussed this patient with Dr. Zepeda who did not see the patient. Differential Diagnosis: Differential diagnosis includes but is not limited to deep venous thrombosis, sciatic, lumbar degenerative disc disease, lumbar strain, hip degeneration - Data Points Medications Given: Discontinued Medications Gabapentin (Neurontin) 600 mg PO EDNOW ONE Stop: 12/01/17 16:08 Last Admin: 12/01/17 16:40 Dose: 600 mg Oxycodone/Acetaminophen (Percocet 5/325) 1 tab PO EDNOW ONE Stop: 12/01/17 16:08 Last Admin: 12/01/17 16:40 Dose: 1 tab Departure - Departure Disposition: Home, Routine, Self-Care Clinical Impression: History of deep venous thrombosis (DVT) of distal vein of left lower extremity , Chronic anticoagulation, Lumbar radicular pain Constipation Qualifiers: Constipation type: unspecified constipation type Qualified Code(s): K59.00 - Constipation, unspecified Condition: Good Instructions: Sciatica (ED), Lumbar Radiculopathy (ED) Additional Instructions: Use Percocet every 6 hours as needed for severe/break through pain. Do not use Tylenol and Percocet concomitantly. Take Medrol Dosepak as directed. Follow up with PCP/Orthopedics-spine in 1-2 weeks if symptoms persist or worsen at which time they will evaluate and recommend with you if conservative management versus further adjuvant therapy like MRI lumbar is indicated. Referrals: Anu Mcduffie MD [Primary Care Provider] - As per Instructions Prescriptions: methylPREDNISolone [Medrol Dose Elfego] 1 each PO AD #0 ea oxyCODONE/APAP 5/325 [Percocet 5/325 (*)] 1 - 2 tab PO Q4H PRN #10 tab PRN Reason: Pain, Severe Polyethylene Glycol 3350 [Miralax 17 gm (*)] 17 gm PO DAILY PRN #12 pkt PRN Reason: Constipation
[2017-12-01] MEDS ORDERED: GABAPENTIN 300 MG CAP PO ONE (16:07)
[2017-12-01] MEDS ORDERED: OXYCODONE/APAP 5/325 TAB PO ONE (16:07)
[2017-12-01 17:43] VITALS: BP 121/74; PULSE 56; TEMP 97.9
== END 2017-12-01 17:44 | disposition home or self-care (01) ==
DX: M54.16 Radiculopathy, lumbar region (principal); K59.00 Constipation, unspecified; Z79.01 Long term (current) use of anticoagulants; Z86.718 Personal history of other venous thrombosis and embolism; Z79.82 Long term (current) use of aspirin; Z86.73 Personal history of transient ischemic attack (TIA), and cerebral infarction without residual deficits

== ENCOUNTER → 2017-12-16 | Outpatient (CLI) | payer OTHER | PROVIDERS: ATTEND Physician Assistant | DX: R13.10 Dysphagia, unspecified (principal); K21.9 Gastro-esophageal reflux disease without esophagitis; Z86.73 Personal history of transient ischemic attack (TIA), and cerebral infarction without residual deficits | CPT/HCPCS: 74220; 74230; 92611; G8996; G8997; G8998 ==

== ENCOUNTER → 2018-01-25 | Outpatient (CLI) | payer OTHER | LOC: FIMAGING 11:22 | PROVIDERS: ATTEND Physical Medicine & Rehabilitation | DX: M25.562 Pain in left knee (principal); M25.552 Pain in left hip ==

== ENCOUNTER → 2018-01-27 | Outpatient (CLI) | payer OTHER | LOC: CIMAGING 10:22 | PROVIDERS: ATTEND Internal Medicine | DX: Z12.31 Encounter for screening mammogram for malignant neoplasm of breast (principal) ==

== ENCOUNTER → 2018-02-02 | Outpatient (CLI) | payer OTHER | LOC: FIMAGING 06:55 | PROVIDERS: ATTEND Physical Medicine & Rehabilitation | DX: M51.36 Other intervertebral disc degeneration, lumbar region (principal) ==

== ENCOUNTER → 2018-02-07 | Outpatient (CLI) | payer OTHER | LOC: FIMAGING 08:41 | PROVIDERS: ATTEND Physical Medicine & Rehabilitation | DX: M50.922 Unspecified cervical disc disorder at C5-C6 level (principal) ==

== ENCOUNTER → 2018-08-03 | Outpatient (CLI) | payer OTHER | LOC: CIMAGING 09:25 | PROVIDERS: ATTEND Otolaryngology | DX: J34.89 Other specified disorders of nose and nasal sinuses (principal); G93.89 Other specified disorders of brain; Z86.73 Personal history of transient ischemic attack (TIA), and cerebral infarction without residual deficits | CPT/HCPCS: 70486-PO ==

== ENCOUNTER 2018-09-24 12:37 | Observation (INO) | payer OTHER ==
[2018-09-24] MEDS ORDERED: LR 1,000 ML IV ONE (13:15)
[2018-09-24] MEDS ORDERED: LIDOCAINE 1% 2 ML INJ ID PRN (13:15)
--- NOTE | 2018-09-24 13:31 | PDHPUP ---
History & Physical Update H&P update statement: This history and physical update is based on an assessment of the patient which was completed after admission or registration (within 24 hours), but prior to the surgery/procedure. H&P update: H&P reviewed & patient examined, no change in patient's condition since H&P completed
[2018-09-24] MEDS ORDERED: ACETAMINOPHEN 325 MG TAB PO PRN (13:32)
[2018-09-24] MEDS ORDERED: ONDANSETRON 4 MG/2 ML VIAL IVP PRN ×2 (13:32→18:53)
[2018-09-24] MEDS ORDERED: HYDROCODONE/APAP 5/325 TAB PO PRN ×2 (13:32→18:53)
--- NOTE | 2018-09-24 13:32 | POSTOPPROG ---
Post Op Note Date of Operation: 09/24/18 Surgeon: Saad Infante [employer] Shift Commander: Ashley Curran Anesthesia: GET(General Endotracheal) Pre-op Diagnosis: symptomatic MNG Post-op Diagnosis: Same Procedure: Total thyroidectomy Findings: massive, heavy diffuse MNG with tracheoesophageal compression, R>L Inf/Abcess present in the surg proc area at time of surgery?: No Specimen(s): thyroid
[2018-09-24] MEDS ORDERED: ACETAMINOPHEN/ASA/CAFFEINE 1 EACH TAB PO PRN (13:33)
[2018-09-24] MEDS ORDERED: MIDAZOLAM 2 MG/2 ML VIAL IVP ONE (14:18)
--- NOTE | 2018-09-24 14:18 | PDANEPAE ---
ANE History of Present Illness goiter here for thyroidectomy ANE Past Medical History - Cardiovascular History Hx Hypertension: No Hx Arrhythmias: Yes Hx Chest Pain: No Hx Coronary Artery / Peripheral Vascular Disease: No Hx CHF / Valvular Disease: No Hx Palpitations: No Cardiovascular History Comment: hx of afib immediately following stroke. dyslipidemia. hx of dvt. hasn't seen dr jang at [facility] in over a year - Pulmonary History Hx COPD: No Hx Asthma/Reactive Airway Disease: No Hx Recent Upper Respiratory Infection: No Hx Oxygen in Use at Home: No Hx Sleep Apnea: No Sleep Apnea Screening Result - Last Documented: Negative Pulmonary History Comment: hx of PE - Neurologic History Hx Cerebrovascular Accident: Yes Hx Seizures: Yes Hx Dementia: No Neurologic History Comment: Right CVA 04/02 RECEIVED TPA then bleed then CRAINIOTOMY. 1X SZ 10/2015. Left arm hemiparesis. Left leg weakness - Endocrine History Hx Diabetes: No Endocrine History Comment: LARGE GOITER - Renal History Hx Renal Disorders: Yes Renal History Comment: overactive bladder. incontinent. currently doing electrical stimulation treatments to help with incontinence - Liver History Hx Hepatic Disorders: No - Neurological & Psychiatric Hx Hx Neurological and Psychiatric Disorders: No - Cancer History Hx Cancer: No - Congenital Disorder History Hx Congenital Disorders: No - GI History Hx Gastrointestinal Disorders: Yes Gastrointestinal History Comment: chronic constipation. gerd. dysphagia DUE TO LARGE GOITER. GASTRITIS - Other Health History Other Health History: wears glasses. hx of anemia - Chronic Pain History Chronic Pain: No - Surgical History Prior Surgeries: 2018 HERNIA REPAIR. 08/25/17 egd, colonoscopy with [place]. Crani 05/21/15 with corrine. 1988 ANE Review of Systems Review of Systems: - Exercise capacity METS (RN): 4 METS ANE Patient History - Allergies Allergies/Adverse Reactions: No Known Allergies Allergy (Verified 05/21/18 11:25) - Home Medications Home Medications: Acetaminophen/ASA/Caffeine [Excedrin Tablet (*)] 1 each PO DAILY PRN 09/17/18 [ Last Taken 09/22/18] Aspirin [Aspirin 81mg (*)] 81 mg PO DAILY 09/17/18 [Last Taken 09/22/18] Atorvastatin Calcium [Lipitor 20 mg (*)] 20 mg PO HS 09/17/18 [Last Taken 21:30] Baclofen [Baclofen 10 mg (*)] 10 mg PO DAILY 09/17/18 [Last Taken 09/24/18 10:00 ] Baclofen [Baclofen 10 mg (*)] 15 mg PO HS 09/17/18 [Last Taken 09/23/18 21:30] Cetirizine [ZyrTEC 10 mg (*)] 10 mg PO DAILY 09/17/18 [Last Taken 09/24/18 10:00 ] Cholecalciferol Vit D3 [Vitamin D3 2000 units tab (OTC)] 4,000 units PO DAILY [Last Taken 09/22/18] Diltiazem HCl [Cartia Xt] 120 mg PO HS 09/17/18 [Last Taken 09/23/18 21:30] Herbals/Supplements -Info Only 1 each PO DAILY 09/17/18 [Last Taken 09/22/18] Lubiprostone [Amitiza 24 mcg (*)] 24 mcg PO DAILY 09/17/18 [Last Taken 09/22/18] Melatonin [Melatonin 5 mg] 5 mg PO HS 09/17/18 [Last Taken 09/23/18 21:30] Metoprolol Tartrate [Lopressor 25 mg (*)] 12.5 mg PO BID 09/17/18 [Last Taken 21:30] Multivitamins [Multivitamin (*)] 1 each PO DAILY 09/17/18 [Last Taken 09/22/18] Omeprazole 40 mg PO DAILY 09/17/18 [Last Taken 09/24/18 10:00] Sertraline HCl [Zoloft 50mg (*)] 75 mg PO DAILY 09/17/18 [Last Taken 09/24/18 10 :00] Solifenacin Succinate [Vesicare 5 MG (*)] 5 mg PO DAILY 09/17/18 [Last Taken 05/05 10:00] Tamsulosin HCl [Flomax 0.4 MG (*)] 0.4 mg PO DAILY 09/17/18 [Last Taken 10:00] Triamcinolone Acetonide [Nasacort] 2 spray EACHNARE DAILY 09/17/18 [Last Taken 09/24/18 09:00] Zolpidem Tartrate [Ambien 5MG (*)] 5 - 10 mg PO HS 09/17/18 [Last Taken 21:30] levETIRAcetam [Keppra 500 mg (*)] 500 mg PO BID 09/17/18 [Last Taken 09/23/18 21 :30] Eliquis 09/23/18 [Last Taken 09/21/18] Synthroid 09/23/18 [Last Taken 09/24/18 10:00] - NPO status NPO Status: no food or drink >8 hours NPO Since - Liquids (Date): 09/24/18 NPO Since - Liquids (Time): 11:00 NPO Since - Solids (Date): 09/23/18 NPO Since - Solids (Time): 18:00 - Anes Hx Anes Hx: no prior problems - Smoking Hx Smoking Status: Never smoked - Alcohol Use Alcohol Use: Rarely - Family Anes Hx Family Anes Hx: none Family Hx Anesthesia Complications: none ANE Labs/Vital Signs - Vital Signs Blood Pressure: 109/61 Heart Rate: 46 Respiratory Rate: 12 O2 Sat (%): 96 Height: 170.18 cm Weight: 81.647 kg ANE Physical Exam - Airway Neck exam: FROM Mallampati Score: Class 2 Mouth exam: normal dental/mouth exam - Pulmonary Pulmonary: no respiratory distress, clear to auscultation - Cardiovascular Cardiovascular: regular rate and rhythym, no murmur, rub, or gallop - ASA Status ASA Status: III ANE Anesthesia Plan Anesthesia Plan: general endotracheal anesthesia
[2018-09-24] MEDS ORDERED: AVITENE POWDER 1 GM JAR TP ONE (15:39)
[2018-09-24] MEDS ORDERED: BUPIVACAINE 0.5% 30 ML SDV ONE (15:45)
[2018-09-24] MEDS ORDERED: PROPOFOL 200 MG/20 ML VIAL ONE (15:51)
[2018-09-24] MEDS ORDERED: fentaNYL 100 MCG/2 ML INJ ONE (15:51)
[2018-09-24] MEDS ORDERED: LIDOCAINE 2% 100 MG/5 ML SYR ONE (15:52)
[2018-09-24] MEDS ORDERED: ROCURONIUM 50 MG/5 ML VIAL ONE (15:52)
[2018-09-24] MEDS ORDERED: HYDROmorphONE/DILAUDID 2 MG/ML INJ IVP PRN (18:53)
[2018-09-24] MEDS ORDERED: fentaNYL 100 MCG/2 ML INJ IVP PRN (18:53)
[2018-09-24] MEDS ORDERED: PROMETHAZINE HCL 25 MG/ML INJ IVP PRN (18:53)
[2018-09-24] MEDS ORDERED: oxyCODONE IR 5 MG TAB PO PRN (18:53)
[2018-09-24] MEDS ORDERED: DIAZEPAM 5 MG/ML 1 ML SYR IVP PRN (18:53)
[2018-09-24] MEDS ORDERED: NALOXONE HCL 0.4 MG/ML INJ IVP PRN (18:53)
[2018-09-24] MEDS ORDERED: ACETAMINOPHEN 500 MG TAB PO PRN (18:53)
--- NOTE | 2018-09-24 18:55 | POSTANESTH ---
Post Anesthetic Evaluation Cardiovascular Status: Normal, Stable, Similar to Pre-Op Cond Respiratory Status: Normal, Stable, Similar to Pre-op Cond. Level of Consciousness/Mental Status: Can Participate in Eval, Alert and Oriented Pain Control: Adequate, Prn Tx Ordered Nausea/Vomiting Control: Adequate, Prn Tx Ordered Complications Possibly Related to Anesthesia: None Noted
[2018-09-24] MEDS: IBUPROFEN 600 MG TAB PO SCH ×2 (20:37→21:03)
[2018-09-24] MEDS ORDERED: BACLOFEN 10 MG TAB PO SCH (21:00)
[2018-09-24] MEDS ORDERED: ATORVASTATIN CALCIUM 20 MG TAB PO SCH (21:00)
[2018-09-24] MEDS ORDERED: DILTIAZEM CD 120 MG CAP PO SCH (21:00)
[2018-09-24] MEDS ORDERED: MELATONIN 3 MG TAB PO SCH (21:00)
[2018-09-24] MEDS: levETIRAcetam 500 MG TAB PO SCH (21:02)
[2018-09-24] MEDS: METOPROLOL TARTRATE 25 MG TAB PO SCH (21:03)
[2018-09-25] MEDS: ZOLPIDEM TARTRATE 5 MG TAB PO SCH ×2 (01:56→03:13)
[2018-09-25] MEDS ORDERED: LEVOTHYROXINE 125 MCG TAB PO SCH (06:00)
[2018-09-25] MEDS: IBUPROFEN 600 MG TAB PO SCH (06:30)
--- NOTE | 2018-09-25 06:41 | GOP ---
DATE OF OPERATION: 09/24/2018 SURGEON: Saad Infante MD [place] ATTENDANT: Ashley Butcher PA-C. ANESTHESIA: General. ANESTHESIOLOGIST: Dr. Navarrete. PREOPERATIVE DIAGNOSIS: Symptomatic multinodular goiter. POSTOPERATIVE DIAGNOSIS: Symptomatic multinodular goiter. PROCEDURE PERFORMED: Total thyroidectomy. FINDINGS: INDICATIONS: A 58-year-old female with a massive multinodular goiter with tracheoesophageal compress ion. She is undergoing a total thyroidectomy at this time. Risks and benefits were explained includ ing bleeding, infection, nerve injury, permanent hypothyroidism, hypoparathyroidism, differential bay gnoses, need for alternative postoperative therapies as well as heightened risks for postoperative bl eeding given the patient's chronic Eliquis use. All questions were entertained. She desired to proc eed. assistant refinery operator is standard, necessary, and customary for the safe performance of this procedure. DESCRIPTION OF PROCEDURE: After general anesthesia was induced, local anesthetic was infiltrated. A low collar incision was created. The platysmal muscle was divided. Subplatysmal skin flaps were cr eated to the level of the cricothyroid membrane, sternocleidomastoid muscle, as well as clavicles. T he left manuela neck cavity was initially unroofed. The massively thickened multinodular goiter was elevated up in the operative field. The lower pole v ascular pedicle was initially circumferentially encompassed and divided with the Endo Shear device. The dissection was taken proximally as tissues allowed. A lower pole parathyroid gland was not defin itively identified. The recurrent laryngeal nerve was able to be identified and preserved throughout the remaining dissection, coursing deep in the neck up into the cricothyroid muscle. A normal-appea ring upper pole parathyroid gland was identified and retracted laterally. The superior vascular pedicle was divided away from the cricothyroid musculature and encompassed with a right angle clamp, allowing for this to be divided with the ultrasonic dissector as well. The rem aining dissection was taken from lateral to medial toward the trachea midline incorporating various f ibers. No visible remnant of thyroid tissue was left upon the left manuela neck cavity. The gland was taken across the midline and taken up into the pyramidal lobe, which was away. The contralateral gland was subsequently explored in a mirror image fashion. This gland was much lar bhavani on this side. Of note, both sides showed significant tracheoesophageal compression accounting fo r many of the patient's preoperative symptomatology. The right gland was much more difficult to holley vate out of the deep neck cavities. Extensive arterial and venous collaterals were present throughou t; these vessels were all controlled either using the energy device or hemoclips. The upper lower po le vascular pedicles were circumferentially encompassed and divided. The upper and lower pole parath yroid glands were identified and preserved. A recurrent laryngeal nerve was identified deep within the neck. There was an extremely dense and no dular portion of the gland near the nerve muscle junction which was left behind. The Harmonic scalpe l was used to transect the thyroid gland, allowing for the dissection to be taken across the midline, incorporating the prior dissection site. The gland was removed intact from the neck and sent for pe rmanent specimen processing and satisfactory hemostasis was assured throughout bilateral manuela neck ca vities. Bilateral nerves were confirmed intact. The left upper pole parathyroid gland as well as ri ght upper and lower pole parathyroid glands were confirmed intact. Satisfactory hemostasis was assur ed. Matheus was placed into bilateral neck cavities. The neck was closed in layers with absorbable suture followed by Dermabond. The patient was extubate d in the operating room and taken to recovery uneventfully. /[id number]/MODL
[2018-09-25 08:36] VITALS: BP 111/63
[2018-09-25] MEDS: METOPROLOL TARTRATE 25 MG TAB PO SCH (08:47)
--- NOTE | 2018-09-25 08:48 | SOAPPROG ---
SOAP Progress Note Assessment/Plan: Assessment: no overnight events. avss. neck soft. incision clean. ca 8.9. doing well. home today. resume home meds except eliquis (start thursday). full dc instructions explained. Plan: 09/25/18 08:47 Objective: Vital Signs Temp Pulse Resp BP Pulse Ox 36.8 C 58 L 18 111/63 93 09/25/18 08:00 09/25/18 08:00 09/25/18 03:07 09/25/18 08:00 09/25/18 08:00 09/24/18 09/25/18 09/26/18 05:59 05:59 05:59 Intake Total 760 Output Total 650 Balance 110 ICD10 Worksheet Patient Problems: Problems Problem Status Onset Acute ischemic stroke Acute Anemia Acute Atrial fibrillation Acute Brain compression Acute Cerebral venous thrombosis Acute Dehydration Acute Intracranial atherosclerosis Acute Intracranial hemorrhage Acute Pneumonia Acute Sequela of cerebrovascular accident Acute Stroke Acute
[2018-09-25] MEDS: levETIRAcetam 500 MG TAB PO SCH (08:49)
[2018-09-25] MEDS ORDERED: LUBIPROSTONE 24 MCG CAP PO SCH (09:00)
[2018-09-25] MEDS ORDERED: TAMSULOSIN HCL 0.4 MG CAP PO SCH (09:00)
[2018-09-25] MEDS ORDERED: FLUTICASONE NASAL 120 SPRAYS/16 GM MDI EACHNARE SCH (09:00)
[2018-09-25] MEDS ORDERED: BACLOFEN 10 MG TAB PO SCH (09:00)
[2018-09-25] MEDS ORDERED: SOLIFENACIN SUCCINATE 5 MG TAB PO SCH (09:00)
[2018-09-25] MEDS ORDERED: MULTIVITAMINS 1 EACH TAB PO SCH (09:00)
[2018-09-25] MEDS ORDERED: PANTOPRAZOLE SODIUM 40 MG TAB PO SCH (09:00)
[2018-09-25] MEDS ORDERED: SERTRALINE HCL 50 MG TAB PO SCH (09:00)
[2018-09-25] MEDS ORDERED: CHOLECALCIFEROL VIT D3 2,000 UNITS TAB/CAP PO SCH (09:00)
[2018-09-25] MEDS ORDERED: CETIRIZINE 10 MG TAB PO SCH (09:00)
[2018-09-25] MEDS ORDERED: ASPIRIN 81 MG CHEWABLE TAB PO SCH (09:00)
== END 2018-09-25 10:42 | disposition home or self-care (01) ==
LOC: F3E 12:37
PROVIDERS: ADMIT Surgery; ATTEND Surgery
PROC: 0GTK0ZZ Resection of Thyroid Gland, Open Approach (ICD-10-PCS; principal; 2018-09-24 14:00)
DX: E04.2 Nontoxic multinodular goiter (principal); K42.9 Umbilical hernia without obstruction or gangrene; N63.0 Unspecified lump in unspecified breast; D17.9 Benign lipomatous neoplasm, unspecified; I69.354 Hemiplegia and hemiparesis following cerebral infarction affecting left non-dominant side; I67.89 Other cerebrovascular disease; I10 Essential (primary) hypertension; I48.91 Unspecified atrial fibrillation; K21.9 Gastro-esophageal reflux disease without esophagitis; Z86.718 Personal history of other venous thrombosis and embolism; Z86.711 Personal history of pulmonary embolism
CPT/HCPCS: 60240; J2001; J2250; J2704; J3010

== ENCOUNTER 2019-03-26 18:34 | Emergency (ER) | payer OTHER | END 2019-03-26 20:45 | disposition home or self-care (01) ==

== ENCOUNTER → 2019-04-09 | Outpatient (CLI) | payer OTHER | LOC: FIMAGING 08:32 ==